=== PATIENT | female | born 1940 ===

== ENCOUNTER 2018-07-07 08:19 | Outpatient (CLI) | payer MEDICARE | END 2018-07-07 08:20 | disposition home or self-care (01) | LOC: CARDIO 08:19 ==

== ENCOUNTER 2018-07-28 09:59 | Day surgery (SDC) | payer MEDICARE ==
[2018-07-23 14:47] VITALS: BMI 27.3
[2018-07-28] MEDS ORDERED: Propofol 10 mg/ml Inj (20 ML) ONE ×2 (12:19→12:21)
[2018-07-28] MEDS ORDERED: Sodium Chloride 0.9% 1,000 ML IV SCH (13:00)
[2018-07-28 16:24] VITALS: BP 122/75; PULSE 65; RESP 16; TEMP 98; O2SAT 98
== END 2018-07-28 15:10 | disposition home or self-care (01) ==
LOC: ENDO 09:59
PROVIDERS: ATTEND Internal Medicine Gastroenterology
DX: R13.10 Dysphagia, unspecified (principal); K29.50 Unspecified chronic gastritis without bleeding; Z12.11 Encounter for screening for malignant neoplasm of colon; K31.9 Disease of stomach and duodenum, unspecified; K57.30 Diverticulosis of large intestine without perforation or abscess without bleeding; K64.8 Other hemorrhoids
CPT/HCPCS: 43239; 45378; 88305; 88342; J2001; J2704; J3010; J7030; J7040

== ENCOUNTER 2018-07-31 10:20 | Outpatient (CLI) | payer MEDICARE | END 2018-07-31 10:21 | disposition home or self-care (01) | LOC: RAD 10:20 ==